=== PATIENT | male | born 1955 ===

== ENCOUNTER 2017-04-09 13:40 | Emergency (ER) | payer MEDICARE, MEDICAID ==
[2017-04-09 14:50] VITALS: BP 125/61
--- NOTE | 2017-04-09 15:42 | UC ---
Respiratory Complaint HPI - HPI Summary HPI Summary: Pt c/o cough, sneezing, "runny nose" wheezing and SOB X 1 day - History of Current Complaint Chief Complaint: UCRespiratory Stated Complaint: COUGH,SORE THROAT Time Seen by Provider: 04/09/17 15:10 Hx Obtained From: Patient Onset/Duration: Sudden Onset, Lasting Days Timing: Constant Severity Initially: Mild Severity Currently: Mild Character: Cough: Nonproductive Aggravating Factors: Exertion, Deep Breaths, Recumbent Position Alleviating Factors: Nothing Associated Signs And Symptoms: Positive: Wheezing, Nasal Congestion - Risk Factors Pulmonary Embolism Risk Factors: Smoking Cardiac Risk Factors: Smoking Pseudomonas Risk Factors: Chronic Lung Disease Tuberculosis Risk Factors: Smoking - Allergies/Home Medications Allergies/Adverse Reactions: Allergies Allergy/AdvReac Type Severity Reaction Status Date / Time No Known Allergies Allergy Verified 04/09/17 14:50 Home Medications: Home Medications DOXYcycline CAP(*) [DOXYcycline 100MG CAP(*)] 100 mg PO BID 04/09/17 [History Confirmed 04/09/17] Lidocaine PATCH 5%* [Lidoderm 5% Patch*] 3 patch TRANSDERM DAILY 04/09/17 [ History Confirmed 04/09/17] traZODone TAB* [Desyrel TAB*] 200 mg PO BEDTIME 04/09/17 [History Confirmed ] PMH/Surg Hx/FS Hx/Imm Hx Previously Healthy: Yes Respiratory History: COPD - Surgical History Surgical History: Yes Surgery Procedure, Year, and Place: t/a as child - Family History Known Family History: Positive: Unknown - not sure of cardiovascular issues in family lineage - Social History Occupation: Works From/At Home Lives: With Family Alcohol Use: None Substance Use Type: None Smoking Status (MU): Former Smoker Type: Cigarettes Amount Used/How Often: 1 pack per day Length of Time of Smoking/Using Tobacco: 46yrs Have You Smoked in the Last Year: Yes When Did the Patient Quit Smoking/Using Tobacco: Jun 2016 Household Exposure Type: Cigarettes - Immunization History Most Recent Influenza Vaccination: unknown Most Recent Pneumonia Vaccination: unknown Review of Systems Constitutional: Negative Skin: Negative Eyes: Negative ENT: Other - sinus congestion Respiratory: Cough Cardiovascular: Negative Gastrointestinal: Negative Genitourinary: Negative Motor: Negative Neurovascular: Negative Musculoskeletal: Negative Neurological: Negative Psychological: Negative Is Patient Immunocompromised?: No All Other Systems Reviewed And Are Negative: Yes Physical Exam Triage Information Reviewed: Yes Appearance: Ill-Appearing Vital Signs: Initial Vital Signs Temp 97.9 F 04/09/17 14:43 Pulse 87 04/09/17 14:43 Resp 24 04/09/17 14:43 BP 125/61 04/09/17 14:43 Pulse Ox 99 04/09/17 14:43 Vital Signs Reviewed: Yes Eye Exam: Normal Eyes: Positive: Discharge - clear ENT Exam: Other ENT: Positive: Nasal congestion Neck exam: Normal Respiratory Exam: Other Respiratory: Positive: Wheezing Abdominal Exam: Normal Musculoskeletal Exam: Normal Neurological Exam: Normal Psychological Exam: Normal Skin Exam: Normal UC Diagnostic Evaluation - Laboratory O2 Sat by Pulse Oximetry: 99 Respiratory Course/Dx - Differential Dx/Diagnosis Differential Diagnosis/HQI/PQRI: Bronchitis, Exacerbation Of COPD Provider Diagnoses: allergies. reactive airway Discharge - Discharge Plan Condition: Stable Disposition: HOME Prescriptions: Albuterol HFA INHALER* [Ventolin HFA Inhaler*] 2 puff INH Q4H PRN #1 mdi PRN Reason: Sob/Wheezing Benzonatate CAP* [Tessalon 100 MG CAP*] 100 mg PO Q8H PRN #30 cap PRN Reason: Cough Cetirizine* [ZyrTEC 10 MG TAB*] 10 mg PO DAILY #20 tab methylPREDNISolone TAB* [Medrol TAB*] 4 - 8 mg PO .SEE ERIN #1 erin Patient Education Materials: Reactive Airways Disease (ED), Allergies (ED) Referrals: Tracey Beltrán MD [Primary Care Provider] - If Needed
== END 2017-04-09 16:02 | disposition home or self-care (01) ==
LOC: UCCORT 13:40
DX: J45.909 Unspecified asthma, uncomplicated (principal); Z87.891 Personal history of nicotine dependence
CPT/HCPCS: 99212; G0463